=== PATIENT | female | born 1980 | race Caucasian/White ===

== ENCOUNTER 2017-05-10 18:28 | Emergency (ER) | payer OTHER ==
[2017-05-10 18:34] VITALS: BP 145/78
--- NOTE | 2017-05-10 18:53 | ER Document Report ---
ED General - General Chief Complaint: Psych Problem Stated Complaint: ANXIETY,HEART BEATING FAST Time Seen by Provider: 05/10/17 18:51 Mode of Arrival: Ambulatory Information source: Patient Notes: 37-year-old female history of anxiety Samir's presents with complaints of agitation anxiety over the past week. Patient denies any fevers chills nausea vomiting or diarrhea. Patient feels like she wants to punch others TRAVEL OUTSIDE OF THE [place] IN LAST 30 DAYS: No - HPI Onset: Last week Onset/Duration: Persistent Quality of pain: No pain Severity: Mild Pain Level: Denies Associated symptoms: Other Exacerbated by: Denies Relieved by: Denies Similar symptoms previously: Yes Recently seen / treated by doctor: Yes - Related Data Allergies/Adverse Reactions: No Known Allergies Allergy (Unverified 05/10/17 18:33) Past Medical History - Social History Smoking Status: Never Smoker Cigarette use (# per day): No Chew tobacco use (# tins/day): No Smoking Education Provided: No Family History: Reviewed & Not Pertinent Renal/ Medical History: Denies: Hx Peritoneal Dialysis Psychiatric Medical History: Reports: Hx Anxiety, Hx Bipolar Disorder - anxiety Past Surgical History: Reports: Hx Adenoidectomy, Hx Hysterectomy, Hx Orthopedic Surgery - herniated disc surgery - Immunizations Hx Diphtheria, Pertussis, Tetanus Vaccination: Yes Review of Systems - Review of Systems Notes: REVIEW OF SYSTEMS: CONSTITUTIONAL : Denies fever, chills, or sweats. Denies recent illness. EENT: Denies eye, ear, throat, or mouth pain or symptoms. Denies nasal or sinus congestion or discharge. Denies throat, tongue, or mouth swelling or difficulty swallowing. CARDIOVASCULAR: Denies chest pain. Denies palpitations or racing or irregular heart beat. Denies ankle edema. RESPIRATORY: Denies cough, cold, or chest congestion. Denies shortness of breath, difficulty breathing, or wheezing. GASTROINTESTINAL: Denies abdominal pain or distention. Denies nausea, vomiting , or diarrhea. Denies blood in vomitus, stools, or per rectum. Denies black, tarry stools. Denies constipation. GENITOURINARY: Denies difficulty urinating, painful urination, burning, frequency, blood in urine, or discharge. FEMALE GENITOURINARY: Denies vaginal bleeding, heavy or abnormal periods, irregular periods. Denies vaginal discharge or odor. MUSCULOSKELETAL: Denies back or neck pain or stiffness. Denies joint pain or swelling. SKIN: Denies rash, lesions or sores. HEMATOLOGIC : Denies easy bruising or bleeding. LYMPHATIC: Denies swollen, enlarged glands. NEUROLOGICAL: Denies confusion or altered mental status. Denies passing out or loss of consciousness. Denies dizziness or lightheadedness. Denies headache. Denies weakness or paralysis or loss of use of either side. Denies problems with gait or speech. Denies sensory loss, numbness, or tingling. Denies seizures. PSYCHIATRIC: Admits to anxiety stress ALL OTHER SYSTEMS REVIEWED AND NEGATIVE. PHYSICAL EXAMINATION: GENERAL: Well-appearing, well-nourished and in no acute distress. HEAD: Atraumatic, normocephalic. EYES: Pupils equal round and reactive to light, extraocular movements intact, conjunctiva are normal. ENT: Nares patent, oropharynx clear without exudates. Moist mucous membranes. NECK: Normal range of motion, supple without lymphadenopathy LUNGS: Breath sounds clear to auscultation bilaterally and equal. No wheezes rales or rhonchi. HEART: Regular rate and rhythm without murmurs ABDOMEN: Soft, nontender, nondistended abdomen. No guarding, no rebound. No masses appreciated. Female : deferred Musculoskeletal: Normal range of motion, no pitting or edema. No cyanosis. NEUROLOGICAL: Cranial nerves grossly intact. Normal speech, normal gait. Normal sensory, motor exams PSYCH: Anxious tearful SKIN: Warm, Dry, normal turgor, no rashes or lesions noted. Dictation was performed using [employer] voice recognition software Physical Exam - Vital signs Vitals: Temp Pulse Resp BP Pulse Ox 98.6 F 84 14 145/78 H 98 05/10/17 18:32 05/10/17 18:32 05/10/17 18:32 05/10/17 18:32 05/10/17 18:32 Course - Re-evaluation Re-evalutation: 05/10/17 18:52 Patient will be held overnight due to concerns of her aggressive behavior towards her children. Otherwise she looks well is in no distress. Labwork is pending - Vital Signs Vital signs: Temp Pulse Resp BP Pulse Ox 98.6 F 84 14 145/78 H 98 05/10/17 18:32 05/10/17 18:32 05/10/17 18:32 08/07/17 18:32 05/10/17 18:32
[2017-05-10] MEDS ORDERED: DIAZEPAM 5 MG TABLET PO ONE (19:30)
[2017-05-10] MEDS ORDERED: OLANZAPINE 5 MG TABLET PO ONE (19:30)
[2017-05-10 19:32] LABS: ABSOLUTE BASOPHILS # (AUTO) 0.1 10^3/uL (0.0-0.2); ABSOLUTE EOSINOPHILS # (AUTO) 0.5 10^3/uL (0.0-0.6); ABSOLUTE LYMPHOCYTES (AUTO) 2.6 10^3/uL (0.5-4.7); ABSOLUTE MONOCYTES (AUTO) 0.3 10^3/uL (0.1-1.4); ABSOLUTE NEUT (AUTO) 4.3 10^3/uL (1.7-8.2); BASOPHILS % (AUTO) 0.7 % (0-2); EOSINOPHILS % (AUTO) 6.3 % (0-6); HEMATOCRIT 45.9 % (36.0-47.0); HGB HCT DIFFERENCE 2.1; LYMPHOCYTES % (AUTO) 33.5 % (13-45); MEAN CORPUSCULAR HEMOGLOBIN 32.7 pg (27.0-33.4); MEAN CORPUSCULAR HGB CONC 34.8 g/dL (32.0-36.0); MEAN CORPUSCULAR VOLUME 94 fl (80-97); MONOCYTES % (AUTO) 4.3 % (3-13); RED BLOOD COUNT 4.88 10^6/uL (3.72-5.28); RED CELL DISTRIBUTION WIDTH 13.1 % (11.5-14.0); SEGMENTED NEUTROPHILS % (AUTO) 55.2 % (42-78); WHITE BLOOD COUNT 7.8 10^3/uL (4.0-10.5)
[2017-05-10 19:49] LABS: ALANINE AMINOTRANSFERASE 24 U/L (9-52); ALBUMIN 4.2 g/dL (3.5-5.0); ALKALINE PHOSPHATASE 72 U/L (38-126); ANION GAP 9 (5-19); ASPARTATE AMINO TRANSFERASE 17 U/L (14-36); BILIRUBIN,DIRECT 0.4 mg/dL (0.0-0.4); BILIRUBIN,TOTAL 0.5 mg/dL (0.2-1.3); BLOOD UREA NITROGEN 13 mg/dL (7-20); CARBON DIOXIDE 29 mmol/L (22-30); CHLORIDE 103 mmol/L (98-107); CREATININE RESULT 0.82 mg/dL (0.52-1.25); GLUCOSE 108 mg/dL (75-110); SODIUM 141.2 mmol/L (137-145); TOTAL PROTEIN 7.1 g/dL (6.3-8.2)
[2017-05-10 19:50] LABS: ALCOHOL < 10 mg/dL (NONE DETECTED)
--- NOTE | 2017-05-10 20:05 | ER Document Report ---
ED General - General Chief Complaint: Psych Problem Stated Complaint: ANXIETY,HEART BEATING FAST Time Seen by Provider: 05/10/17 18:51 Mode of Arrival: Ambulatory Notes: Patient is a 37-year-old female with a past medical history of chronic daily panic disorder, currently only on Ativan stating that SSRIs in SSRIs that have been tried in the past make her daily anxiety worse who presents with 1 week of episodic rage. Patient states that without trigger, she will begin having rage and a desire to destroy property at the house. She has not hurt anybody else during these episodes and states that she often has a desire to do so. His episodes do spontaneously resolve and she knows that her Ativan does not help with these episodes. She has no history of similar symptoms in the past. She has not spoken to her primary psychiatric providers regarding these episodes. She does follow at [facility]. She denies any acute medical concerns or complaints. TRAVEL OUTSIDE OF THE [place] IN LAST 30 DAYS: No - Related Data Allergies/Adverse Reactions: haloperidol [From Haldol] Adverse Reaction (Mild, Verified 05/10/17 18:53) Home Medications: Current Home Medications Thyroid (Pork) [[place] Thyroid 60 mg Tablet] 60 mg PO 05/10/17 [History] Past Medical History - General Information source: Patient - Social History Smoking Status: Current Every Day Smoker Cigarette use (# per day): No Chew tobacco use (# tins/day): No Frequency of alcohol use: Rare Drug Abuse: None Lives with: Spouse/Significant other Family History: Reviewed & Not Pertinent Renal/ Medical History: Denies: Hx Peritoneal Dialysis Psychiatric Medical History: Reports: Hx Anxiety, Hx Bipolar Disorder - anxiety Past Surgical History: Reports: Hx Adenoidectomy, Hx Breast Surgery - augmentation, Hx Hysterectomy, Hx Orthopedic Surgery - herniated disc surgery - Immunizations Hx Diphtheria, Pertussis, Tetanus Vaccination: Yes Review of Systems - Review of Systems Notes: Constitutional: Negative for fever. HENT: Negative for sore throat. Eyes: Negative for visual changes. Cardiovascular: Negative for chest pain. Respiratory: Negative for shortness of breath. Gastrointestinal: Negative for abdominal pain, vomiting or diarrhea. Genitourinary: Negative for dysuria. Musculoskeletal: Negative for back pain. Skin: Negative for rash. Neurological: Negative for headaches, weakness or numbness. 10 point ROS negative except as marked above and in HPI. Physical Exam - Vital signs Vitals: Temp Pulse Resp BP Pulse Ox 98.6 F 84 14 145/78 H 98 05/10/17 18:32 05/10/17 18:32 05/10/17 18:32 05/10/17 18:32 05/10/17 18:32 Interpretation: Normal Notes: PHYSICAL EXAMINATION: GENERAL: Well-appearing, well-nourished and in no acute distress. HEAD: Atraumatic, normocephalic. EYES: Pupils equal round and reactive to light, extraocular movements intact, sclera anicteric, conjunctiva are normal. ENT: nares patent, oropharynx clear without exudates. Moist mucous membranes. NECK: Normal range of motion, supple without lymphadenopathy LUNGS: Breath sounds clear to auscultation bilaterally and equal. No wheezes rales or rhonchi. HEART: Regular rate and rhythm without murmurs ABDOMEN: Soft, nontender, normoactive bowel sounds. No guarding, no rebound. No masses appreciated. EXTREMITIES: Normal range of motion, no pitting or edema. No cyanosis. NEUROLOGICAL: No focal neurological deficits. Moves all extremities spontaneously and on command. PSYCH: Somewhat anxious, tearful SKIN: Warm, Dry, normal turgor, no rashes or lesions noted. Course - Re-evaluation Re-evalutation: 05/10/17 19:59 Patient presents stating that she is having uncontrollable episodes of rage for the past 1 week. States that she feels she is a threat to her family at this time as she feels like she might "burn the house down or something". She has never had similar symptoms in the past prior to the past 1 week. Does have a history of daily panic disorder and states that typically 8-10 hours a day she is having a panic attack. She takes Ativan for this but states that has not helped with her most recent symptoms. She also does have a history of hypothyroidism although her levels were checked 3 months ago and were noted to be normal. She has been taking all medications as directed. At time of my assessment patient is overall calm and cooperative although does appear somewhat anxious and is intermittently tearful. Medical screening exam is unremarkable. Will obtain basic screening laboratories. Patient does not meet IVC criteria at this point as she has not actually harmed anyone in her family, does not express a desire to do so only a fear that she could possibly do this if she would have another episode of rage. However, all prior rate episodes patient has demonstrated appropriate self-control isolating herself from her children and doing in a place where she would not hurt anybody else. I have offered to keep patient here in the emergency department so she may talk psychiatry in the morning and she is agreeable to this. 05/10/17 21:07 Patient states that she does not wish to stay here tonight as she would like to go outside and smoke and we will not allow her to do that. Again patient does not meet involuntary criteria and I cannot hold her here against her will. I have again recommended given her concerns that she could potentially have a bad episode she should stay here she is really worried about this but she has declined. - Vital Signs Vital signs: Temp Pulse Resp BP Pulse Ox 98.6 F 84 14 145/78 H 98 05/10/17 18:32 05/10/17 18:32 05/10/17 18:32 05/10/17 18:32 05/10/17 18:32 - Laboratory Result Diagrams: 05/10/17 19:12 05/10/17 19:12 Laboratory results interpreted by me: 05/10/17 05/10/17 19:12 19:12 Hgb 16.0 H Eosinophils % 6.3 H Salicylates < 1.0 L Acetaminophen < 10 L Discharge - Discharge Clinical Impression: Aggressive behavior, Emotional lability Condition: Good Disposition: HOME, SELF-CARE Additional Instructions: You have decided to go home without being evaluated by psychiatry. Please return if you would like to complete your assessment.
[2017-05-10 20:20] LABS: APPEARANCE,URINE CLEAR; BILIRUBIN,URINE NEGATIVE (NEGATIVE); GLUCOSE, URINE NEGATIVE (NEGATIVE); KETONES,URINE NEGATIVE (NEGATIVE); LEUKOCYTE ESTERASE,URINE NEGATIVE (NEGATIVE); NITRITE,URINE NEGATIVE (NEGATIVE); PROTEIN,URINE NEGATIVE (NEGATIVE); URINE SPECIFIC GRAVITY 1.005; UROBILINOGEN,URINE NEGATIVE mg/dL (<2.0)
[2017-05-10 20:38] LABS: URINE BARBITURATES SCREEN NEGATIVE; URINE METHADONE SCREEN NEGATIVE; URINE OPIATES LOW NEGATIVE; URINE PHENCYCLIDINE SCREEN NEGATIVE
--- NOTE | 2017-05-10 22:17 | EKG REPORT ---
SEVERITY:- ABNORMAL ECG - SINUS RHYTHM CLAUDETTE, CONSIDER BIATRIAL ABNORMALITIES : Confirmed by: Johana Hernandez 10-May-2017 22:16:27
== END 2017-05-10 21:14 | disposition home or self-care (01) ==
LOC: ER 18:28
DX: R45.86 Emotional lability (principal); F41.9 Anxiety disorder, unspecified; R00.2 Palpitations; Z79.899 Other long term (current) drug therapy; F17.200 Nicotine dependence, unspecified, uncomplicated
CPT/HCPCS: 36415; 80053; 80307; 81001; 84439; 84443; 84703; 85025; 93005; 93010; 99284